=== PATIENT | male | born 1995 | race Caucasian/White ===

== ENCOUNTER 2019-09-08 18:46 | Emergency (ER) | payer OTHER ==
[2019-09-08] MEDS ORDERED: ACETAMINOPHEN 500 MG TABLET (FP) PO ONE (19:03)
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
[2019-09-08 19:07] VITALS: BP 138/90; PULSE 61; TEMP 98; BMI 23.7
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
[2019-09-08] MEDS ORDERED: ACETAMINOPHEN 500 MG TABLET (FP) ONE (20:25)
== END 2019-09-08 20:29 | disposition home or self-care (01) ==
LOC: JERFT 18:46 → JER 18:46 → JERFT 20:29
DX: G44.309 Post-traumatic headache, unspecified, not intractable (principal); S06.0X0A Concussion without loss of consciousness, initial encounter; V47.6XXA Car passenger injured in collision with fixed or stationary object in traffic accident, initial encounter; Y92.414 Local residential or business street as the place of occurrence of the external cause; Y93.89 Activity, other specified; Y99.8 Other external cause status
CPT/HCPCS: 99281-25